=== PATIENT | female | born 1990 | race Caucasian/White ===

== ENCOUNTER 2016-05-08 11:37 | Outpatient (CLI) | payer OTHER | END 2016-05-08 11:38 | disposition home or self-care (01) | DX: Z36 Encounter for antenatal screening of mother (principal) ==

== ENCOUNTER 2016-05-25 14:55 | Outpatient (CLI) | payer OTHER | END 2016-05-25 14:56 | disposition home or self-care (01) | DX: Z36 Encounter for antenatal screening of mother (principal) ==

== ENCOUNTER 2016-06-23 08:00 | Outpatient (CLI) | payer OTHER | END 2016-06-23 08:01 | disposition home or self-care (01) | DX: Z36 Encounter for antenatal screening of mother (principal) ==

== ENCOUNTER 2016-06-23 14:38 | Outpatient (CLI) | payer OTHER | END 2016-06-23 14:39 | disposition home or self-care (01) | DX: E03.9 Hypothyroidism, unspecified (principal) ==

== ENCOUNTER 2016-06-29 13:28 | Outpatient (CLI) | payer OTHER | END 2016-06-29 13:29 | disposition home or self-care (01) | DX: O26.843 Uterine size-date discrepancy, third trimester (principal) ==

== ENCOUNTER 2016-07-22 09:33 | Inpatient (IN) | payer OTHER ==
[2016-07-22] MEDS ORDERED: SODIUM CHLORIDE FLUSH 0.9% 10 ML SYRINGE IVP PRN (14:38)
[2016-07-22] MEDS ORDERED: fentaNYL 100 MCG/2 ML VIAL IVP PRN (14:38)
--- NOTE | 2016-07-22 14:49 | HISTORY & PHYSICAL EXAMINATION ---
Admit History - Instructions [place]/Slash: -Left hand click circles element as positive or present. -Right hand click slashes element as negative or not present. - Visit Reason Visit Reason: Contractions (25 yo SAb3 LMP 10/02/2015, EDC 07/16/2016 confirmed with US at 7.4 weeks. Pt devlloped contractions which were strong at 0600. Presented t L&D at 0900 with cx at 3/80. Alowed to walk rechecked and was found to be 4/80% at 1430.) - : 5 Parity: 1 : 3 Care: positive: [facility] (Transfered at 25.6 weeks from [facility]. Pregnency complicated with Itching with negative bile solts, abnormal 50 gm with normal 3 hour GTT. GBS positive.) Risk/History: positive: Labor augmentation (Pt is showing cervical change) Complications This : positive: None Smoking Status: Former smoker - Mother's Labs Mother's Blood Type: positive: O Mother's RH: positive: Positive GBS: positive: Group B Strep Positive Rubella Status: positive: Immune Meds/Allgy - Home Medications Home Medications: Ambulatory Orders Medication Instructions Recorded Confirmed Levothyroxine [Synthroid] 100 mcg ORAL DAILY 02/23/15 12/11/15 Gabapentin 300 mg PO BID 12/11/15 12/11/15 Pnv95/Iron Fum/Folic Acid 1 tab PO DAILY 12/11/15 12/11/15 [ Caplet] Pyridoxine HCl [Vitamin B-6] 25 mg PO TID 12/11/15 12/11/15 Unisom 1 tab PO DAILY 12/11/15 12/11/15 - Allergies Allergies/Adverse Reactions: Allergies Allergy/AdvReac Type Severity Reaction Status Date / Time nifedipine Allergy Intermediate Headache Verified 12/11/15 22:16 [From Nifedical XL] codeine [Codeine] Allergy Unknown Hives Verified 12/11/15 22:16 fluoxetine HCl * Allergy Unknown UNKNOWN Verified 12/11/15 22:16 [From Prozac] plastic hospital tape AdvReac Rash Uncoded 12/11/15 22:16 Physical - Abdominal Exam Vital Signs: Temp Pulse Resp BP Pulse Ox 36.4 C L 75 22 116/80 99 07/22/16 09:48 07/22/16 09:48 07/22/16 09:48 07/22/16 09:48 07/22/16 09:48 Contraction Intensity: positive: Moderate to strong - Monitoring Strip Review: positive: Category I - Presentation Presentation: positive: Vertex - Vaginal Exam Membranes: positive: Membranes intact Dilation (in cm): 4 Effacement (%): 80% Station: positive: -2 Cervical Position: positive: Midposition - Speculum Exam Speculum Exam Performed: positive: No (PER, EOM Heart RR without M Lungs clear) Plan for Labor - Plan For Labor Plan for Labor: 1. 40.6 weeks 2. Early labor 3. Hypothyroid 4. chronic pain. 5. GBS positive
[2016-07-22] MEDS: LACTATED RINGERS 1,000 ML IV SCH ×2 (14:50→18:32)
[2016-07-22] MEDS ORDERED: PENICILLIN G POTASSIUM 5,000,000 UNIT in SODIUM CHLORIDE 0.9% MINIBAG 100 ML IV SCH (15:00)
[2016-07-22 15:11] LABS: BASOPHILS % (AUTO) 0.4 %; EOSINOPHILS # (AUTO) 0.1 10^3/uL (0.0-0.7); EOSINOPHILS % (AUTO) 0.6 %; HCT - HEMATOCRIT 31.1 % (37.0-47.0); LYMPHOCYTES # (AUTO) 3.3 10^3/uL (1.5-3.5); LYMPHOCYTES % (AUTO) 25.9 %; MEAN CORPUSCULAR HEMOGLOBIN 24.6 pg (27.0-31.0); MEAN CORPUSCULAR HGB CONC 32.2 g/dL (32.0-36.0); MEAN CORPUSCULAR VOLUME 76.2 fL (81.0-99.0); MEAN PLATELET VOLUME 8.3 fL (7.9-10.8); MONOCYTES # (AUTO) 0.9 10^3/uL (0.0-1.0); MONOCYTES % (AUTO) 7.2 %; NEUTROPHILS # (AUTO) 8.3 10^3/uL (1.5-6.6); NEUTROPHILS % (AUTO) 65.9 %; RED BLOOD COUNT 4.08 10^6/uL (4.20-5.40); RED CELL DISTRIBUTION WIDTH 16.8 % (12.0-15.0); UNCORRECTED WHITE BLOOD COUNT 12.6 x10^3/uL; WHITE BLOOD COUNT 12.6 x10^3/uL (4.8-10.8)
[2016-07-22] MEDS ORDERED: fentaNYL 100 MCG/2 ML VIAL ONE (15:35)
[2016-07-22] MEDS ORDERED: fent/BUPIV 2 MCG/0.125% 250 ML EP ONE (15:35)
[2016-07-22] MEDS: ACETAMINOPHEN 325 MG TABLET PO SCH (17:14)
[2016-07-22] MEDS ORDERED: ePHEDrine 50 MG/ML AMP IVP PRN (17:57)
[2016-07-22] MEDS ORDERED: diphenhydrAMINE INJ 50 MG/ML VIAL IVP PRN (17:57)
[2016-07-22] MEDS ORDERED: NALBUPHINE 20 MG/ML AMP IVP PRN (17:57)
[2016-07-22] MEDS ORDERED: ONDANSETRON 4 MG/2 ML VIAL IVP PRN (17:57)
[2016-07-22] MEDS ORDERED: NALOXONE 0.4 MG/ML VIAL IVP PRN (17:57)
[2016-07-22] MEDS ORDERED: fent/BUPIV 2 MCG/0.125% 250 ML EP PRN (17:57)
[2016-07-22] MEDS ORDERED: LACTATED RINGERS 500 ML IV ONE (17:57)
[2016-07-22] MEDS ORDERED: METOCLOPRAMIDE 10 MG/2 ML VIAL IVP PRN (17:57)
[2016-07-22] MEDS: ONDANSETRON 4 MG/2 ML VIAL IVP PRN ×2 (18:55→22:58)
[2016-07-22] MEDS: PENICILLIN G POTASSIUM 2,500,000 UNIT in SODIUM CHLORIDE 0.9% 100ML 100 ML IV SCH ×2 (18:57→23:17)
--- NOTE | 2016-07-22 20:14 | PROVIDER PROGRESS NOTE ---
Labor Progress Note - Instructions [place]/Slash: -Left hand click circles element as positive or present. -Right hand click slashes element as negative or not present. - Uterine Monitoring Uterine Monitoring Mode: positive: External toco Contraction Intensity: positive: Moderate to strong Uterine Resting Tone: positive: Soft - Monitoring Monitor Mode: positive: External ultrasound Heart Rate Baseline: 125 Heart Rate Variability: positive: Moderate (6-25 bmp) Accelerations: positive: Present, 15x15 Decelerations: positive: None Strip Review: positive: Category I - Vaginal Exam Dilation (in cm): 6 Effacement (%): 90 Station: positive: Ballotable Cervical Position: positive: Midposition - Labor Progress Note Labor Progress Note/Additional Text: Pt has excellent epidural. baby's head has ascended. Not well applied. Progressing. will not rupture now.
[2016-07-22] MEDS ORDERED: OXYTOCIN/LACTATED RINGERS 250 ML IV SCH (22:00)
[2016-07-22] MEDS ORDERED: SODIUM CHLORIDE FLUSH 0.9% 10 ML SYRINGE IVP SCH (22:00)
[2016-07-22] MEDS ORDERED: LIDOCAINE 1% 50 ML MDV ONE (22:29)
[2016-07-22] MEDS ORDERED: MINERAL OIL LIGHT 10 ML MC ONE (22:29)
[2016-07-23] MEDS ORDERED: WITCH HAZEL/GLYCERIN 1 EACH MED..PAD TOP PRN (00:16)
[2016-07-23] MEDS ORDERED: HYDROCORTISONE 1% CREAM 28 GM TUBE PR PRN (00:16)
[2016-07-23] MEDS ORDERED: OXYTOCIN/LACTATED RINGERS 250 ML IV ONE (00:16)
[2016-07-23] MEDS ORDERED: diphenhydrAMINE INJ 50 MG/ML VIAL IVP PRN (00:16)
--- NOTE | 2016-07-23 00:24 | DELIVERY NOTE ---
Delivery Note - Instructions [place]/Slash: -Left hand click circles element as positive or present. -Right hand click slashes element as negative or not present. - Labor Labor: positive: Spontaneous - Delivery Method Delivery Method: positive: Vacuum assist - Presentation Presentation: positive: Vertex, ELIZABETH - right occiput anterior - Nuchal Cord Nuchal Cord: positive: Present, Reduced (times 2) - Anesthetic Anesthetic Type: Anesthetic: positive: Lidocaine - 1% plain Volume: positive: Other (15 ml) - Amniotic Fluid Description Amniotic Fluid Description: positive: Clear - Vacuum Use Indication for Vacuum Use: positive: Shortening of 2nd stage for maternal benefit Type of Vacuum Cup: positive: Cup: Mushroom Type, Cup: Soft Vacuum Extraction: positive: Successful Number of pop-offs: 0 - Episiotomy Type Episiotomy Type: positive: None - Laceration Laceration: positive: 2nd degree (right near the clitorus), Labial - Suture Suture Type: positive: Vicryl Suture Size: positive: 3-0 - Delivery Outcome Delivery Outcome: positive: Livebirth - [place]: positive: Stimulated, Warmed, Warmer used [place] sex: positive: Female (Apgars 6/9. Weight 10lb 7oz) - Cord Cord: positive: 3 vessels - Placenta Placenta: positive: Intact, Spontaneous - Estimated Blood Loss Estimated Blood Loss (in cc): 300 - Delivery Comments (Free Text/Narrative) Delivery Comments (Free Text/Narrative): following admission pt was started on PCN for GBS +. Epidural was placed with difficulty secondary to rotation of the spine. excellent resujlt. pt developed spontaneous labor so pitocin was not started. progressed and SROMed at 2145. progressed to complete at 2315 contractions spaced and pitocin was added to increase frequency of her contractions. baby was felt to be ROP. to shorten the second stage because of bradycardia a vacuum was placed at +3. Pulled thru 3 contractions with good progress with each contraction the head spontaneously rotated to ELIZABETH and was delivered at 2346. P;acenta soon followed at 2351 it was inspected and noted to be complete. a right labia minora laceration was found and repaired with 3-0 vicril after local anaesthesia with 1 % Lidocane. Following the delivery sponge and needle was correct.
[2016-07-23] MEDS: ACETAMINOPHEN 325 MG TABLET PO SCH (00:55)
[2016-07-23] MEDS ORDERED: LACTATED RINGERS 1,000 ML IV SCH (01:00)
[2016-07-23] MEDS: IBUPROFEN 800 MG TABLET PO SCH ×4 (01:45→23:03)
[2016-07-23] MEDS: oxyCODONE 5 MG TABLET PO PRN ×5 (01:46→17:34)
[2016-07-23] MEDS: HYDROCORTISONE/PRAMOXINE 10 GM PR PRN (05:07)
[2016-07-23 05:45] LABS: BASOPHILS # (AUTO) 0.1 10^3/uL (0.0-0.1); BASOPHILS % (AUTO) 0.4 %; EOSINOPHILS % (AUTO) 0.2 %; HCT - HEMATOCRIT 26.9 % (37.0-47.0); HGB - HEMOGLOBIN 8.8 g/dL (12.0-16.0); LYMPHOCYTES # (AUTO) 2.6 10^3/uL (1.5-3.5); MEAN CORPUSCULAR HEMOGLOBIN 25.1 pg (27.0-31.0); MEAN CORPUSCULAR HGB CONC 32.7 g/dL (32.0-36.0); MEAN CORPUSCULAR VOLUME 76.6 fL (81.0-99.0); MONOCYTES # (AUTO) 0.9 10^3/uL (0.0-1.0); MONOCYTES % (AUTO) 6.5 %; NEUTROPHILS # (AUTO) 9.5 10^3/uL (1.5-6.6); NEUTROPHILS % (AUTO) 72.9 %; RED BLOOD COUNT 3.51 10^6/uL (4.20-5.40); RED CELL DISTRIBUTION WIDTH 17.1 % (12.0-15.0); UNCORRECTED WHITE BLOOD COUNT 13.1 x10^3/uL; WHITE BLOOD COUNT 13.1 x10^3/uL (4.8-10.8)
--- NOTE | 2016-07-23 08:44 | DIABETES LETTER ---
July 22, 2016 [id number] RE: Tanmay Zapien E5. Dear Sirs: I am Dr. Ricky Keating. I delivered Tanmay's , Angi Zapien, on 07/22/2016. This occurred at 2346. She will be going home probably within the next 2 days. She has no other support at home such a s family or other family members and she has now a new to take care of, as well as her 3-year- old child. At this point, I think it would be very important for her to be present to help ca re for her during the transition period. I recommend that she have at least 2 weeks of help from her at this time. If you have any questions, please feel free to contact me. Sincerely, JOB #: [id number] EXT JOB #:[id number]
[2016-07-23] MEDS: ACETAMINOPHEN 500 MG TABLET PO SCH ×3 (08:53→18:31)
[2016-07-23] MEDS: SIMETHICONE CHEW 80 MG TABLET PO SCH ×3 (08:53→23:03)
--- NOTE | 2016-07-23 10:22 | PROVIDER PROGRESS NOTE ---
Subjective - Prog Note Date Prog Note Date: 07/23/16 Prog Note Time: 10:20 - Subjective Pt reports feeling: Improved (Pain /10. using Ice for episotomy pain.) Objective - Vital Signs/Intake & Output Reviewed Vital Signs: Yes Vital Signs: Vital Signs x48h Temp Pulse Resp BP Pulse Ox 07/23/16 08:42 36.4 C L 81 16 119/66 98 07/23/16 04:12 36.3 C L 87 22 141/82 H 98 07/23/16 02:24 36.7 C Intake & Output: Intake & Output 07/20/16 07/21/16 07/22/16 07/23/16 23:59 23:59 23:59 23:59 Intake Total 100 2430 Output Total 875 930 Balance -775 1500 - Objective General Appearance: positive: No acute distress, Alert Respiratory: positive: Chest non-tender, No respiratory distress, Breath sounds nml Cardiovascular: positive: Regular rate & rhythm, No murmur, No gallop Abdomen: positive: Non-tender, Mass (U-1) Extremities: positive: Non-tender. negative: Calf tenderness, Debbie's sign/ cords - Lab Results Fish Bones: 07/23/16 05:25 Other Labs: Lab Results x24hrs 07/23/16 07/22/16 Range/Units 05:25 14:40 WBC 13.1 H 12.6 H (4.8-10.8) x10^3/uL RBC 3.51 L 4.08 L (4.20-5.40) 10^6/uL Hgb 8.8 L 10.0 L (12.0-16.0) g/dL Hct 26.9 L 31.1 L (37.0-47.0) % MCV 76.6 L 76.2 L (81.0-99.0) fL MCH 25.1 L 24.6 L (27.0-31.0) pg MCHC 32.7 32.2 (32.0-36.0) g/dL RDW 17.1 H 16.8 H (12.0-15.0) % Plt Count 192 232 (130-450) 10^3/uL MPV 8.0 8.3 (7.9-10.8) fL Neut # 9.5 H 8.3 H (1.5-6.6) 10^3/uL Lymph # 2.6 3.3 (1.5-3.5) 10^3/uL Heard # 0.9 0.9 (0.0-1.0) 10^3/uL Eos # 0.0 0.1 (0.0-0.7) 10^3/uL Baso # 0.1 0.0 (0.0-0.1) 10^3/uL Absolute Nucleated RBC 0.00 0.00 x10^3/uL Nucleated RBCs 0.0 0.0 /100WBC Assessment/Plan - Problem List (1) Anemia Impression: Post . will start Iron
[2016-07-23] MEDS: DOCUSATE SODIUM 100 MG CAPSULE PO SCH (17:33)
[2016-07-23] MEDS: FERROUS SULFATE 325 MG TABLET PO SCH (17:34)
[2016-07-24] MEDS: ACETAMINOPHEN 500 MG TABLET PO SCH ×2 (05:16→13:49)
--- NOTE | 2016-07-24 08:02 | PROVIDER PROGRESS NOTE ---
Subjective - Prog Note Date Prog Note Date: 07/24/16 Prog Note Time: 08:00 - Subjective Pt reports feeling: Improved (pt doing well. pain scale 3/10. baby sathish need to stay for bili.) Objective - Vital Signs/Intake & Output Reviewed Vital Signs: Yes Vital Signs: Vital Signs x48h Temp Pulse Resp BP Pulse Ox 07/24/16 02:00 36.3 C L 72 16 112/73 98 Intake & Output: Intake & Output 07/21/16 07/22/16 07/23/16 07/24/16 23:59 23:59 23:59 23:59 Intake Total 100 2430 Output Total 875 930 Balance -775 1500 - Objective General Appearance: positive: No acute distress, Alert Respiratory: positive: Chest non-tender, No respiratory distress Cardiovascular: positive: Regular rate & rhythm, No murmur Abdomen: positive: Nml bowel sounds, Mass (u-2 minimal tenderness). negative: Tenderness Rectal: positive: Other (episotomy doing well without erythema.) Extremities: negative: Calf tenderness, Debbie's sign/cords - Lab Results Fish Bones: 07/23/16 05:25 Assessment/Plan - Problem List (1) Anemia Impression: discussed contraception, mastitis, infection, bleeding Discharge meds: Motrin 800 percocet colace iron RTC 6 weeks
--- NOTE | 2016-07-24 08:10 | Discharge Plan ---
Discharge Plan Disposition: 01 Home, Self Care Condition: Good Diet: Regular Activity Restrictions: pelvic rest Shower Restrictions: No Driving Restrictions: No Weight Bearing: Full Weight No Smoking: If you smoke, Please STOP! Call for help. Follow-up with: Ricky Keating MD [Provider Admit Priv/Credential] -
[2016-07-24] MEDS: DOCUSATE SODIUM 100 MG CAPSULE PO SCH (08:20)
[2016-07-24] MEDS: oxyCODONE 5 MG TABLET PO PRN ×2 (08:20→11:49)
[2016-07-24] MEDS: SIMETHICONE CHEW 80 MG TABLET PO SCH (08:20)
[2016-07-24] MEDS: IBUPROFEN 800 MG TABLET PO SCH ×2 (08:20→13:49)
[2016-07-24] MEDS: FERROUS SULFATE 325 MG TABLET PO SCH (08:20)
[2016-07-24 08:27] VITALS: BP 129/75
--- NOTE | 2016-07-24 09:21 | DISCHARGE SUMMARY ---
DATE OF ADMISSION: 07/22/2016 DATE OF DISCHARGE: 07/24/2016 ADMITTING DIAGNOSES 1. Labor. 2. Term cyesis. DISCHARGE DIAGNOSES 1. Labor. 2. Term cyesis. PROCEDURES 1. Epidural. 2. Vacuum-assisted vaginal delivery. PRESENTING HISTORY: The patient is a 25-year-old 5, para 1 female whose EDC was 07/16 confirmed with ultrasound at 7 weeks 4 days. She had difficulty with contractions, starting roughly at 6:00. She presented at 9. She was allowed to walk and found a change in her cervix. She was a transfer from [facility] at 25.6 weeks. She had difficulty with itching during her , but had normal bile salts. She had a normal 3-hour GTT, but was GBS positive. LABORATORY: Preop, her white count was 12.6, hemoglobin 10.0, platelets were 232 postop. Hemoglobin fell to 8.8, white count, 13.1, and platelets were at 192. HOSPITAL COURSE: The patient was admitted, at which time she was allowed to labor. She requested an epidural, but because of the curvature and scoliosis of her spine, it was quite difficult placing an epidural in her. After several attempts, one was accomplished and she had excellent relief. She progressed to complete and because of variable decelerations, decided to shorten the second stage of labor. This was accomplished with a vacuum. Delivery was easy and the was delivered with excellent Apgars. The patient has tolerated delivery well and is recovering well at this time. She is being discharged home on medications of Motrin, Percocet, iron, as well as Colace. She has been discussed with contraception, anemia, as well as bleeding, infection, as well as mastitis. She is instructed to follow up in clinic in 6 weeks. JOB #: [id number] EXT JOB #:[id number] BETTE
[2016-07-24] MEDS: HYDROCORTISONE/PRAMOXINE 10 GM PR PRN (11:49)
--- NOTE | 2016-07-24 15:43 | Labor Flowsheet ---
Labor Flowsheet Datetime Report Generated by CPN: 07/24/2016 15:42 Datetime: 07/24/2016 08:24 VITAL SIGNS NBP Sys/Inna/Mean (mmHg): 129 : 75 : 84 Pulse: 85 SpO2 (%): 99 Temperature (F): 98.1 Temperature (C): 36.7 Temperature (C): 36.7 COMMUNICATION LaborFlag: Labor Datetime: 07/22/2016 23:40 UTERINE ACTIVITY Monitor Mode: External Frequency (min): 2-3 Quality: Strong Duration (sec): 50 Pattern: Normal: <= 5 Contractions in 10 Minutes Resting Tone (Palpate): Relaxed ASSESSMENT A Monitor Mode: External US FHR Baseline Rate : 125 Variability: Moderate 6-25 bpm Accelerations: None Decelerations: Variable Actions for Decelerations: Oxygen Applied Category: Category II Datetime: 07/22/2016 23:38 Patient Care Comments: vac placed Datetime: 07/22/2016 22:38 FHR Baseline Changes: No Baseline Change Datetime: 07/22/2016 22:10 ANESTHESIA Anesthesia Plans: Epidural Anesthesia Comments: epiduRAL REDOSE Datetime: 07/22/2016 22:04 Respirations: 20 Temperature Route: Oral Datetime: 07/22/2016 21:05 Stage of : Labor Datetime: 07/22/2016 21:01 VAGINAL EXAM Dilatation (cm): 6.0 Effacement (%): 90 Station: -3 Exam by: tere dent [facility] Membrane Status: Bulging Presentation 'A': Cephalic Lie 'A': Longitudinal Datetime: 07/22/2016 20:45 Anesthesia Level Check: T9 Datetime: 07/22/2016 19:50 PAIN Pain Scale: 0 Pain Presence: None/Denies Datetime: 07/22/2016 19:48 Monitor Interventions for UA: Mccormick Adjusted Monitor Interventions for FHR: Ultrasound Adjusted Datetime: 07/22/2016 18:59 Antibiotics: Penicillin IV (Units) @ 2.5 Antiemetics/Antacids: Zofran (mg) @ 4 Datetime: 07/22/2016 18:51 PATIENT CARE Patient Position/Activity: Right Lateral Datetime: 07/22/2016 17:57 Contraction Comments: ctx Datetime: 07/22/2016 17:35 Epidural Procedure: Loading Dose Datetime: 07/22/2016 17:13 MEDICATIONS Analgesics/Sedatives: Fentanyl (mcg) @ 50 Datetime: 07/22/2016 16:40 Epidural Procedure Other: Cath Removed; Cath Intact Datetime: 07/22/2016 16:15 PROCEDURE TIME OUT Procedure Verify: Correct Patient Identity; Correct Side and Site are Marked; Accurate Procedure Co nsent Form; Agreement on Procedure to be Done; Correct Patient Position; Relevant Images and Results are Properly Labeled and Displayed; Addressed Need to Administer Antibiotics or Fluids for Irrigation ; Safety Precautions Based on Patient History or Medication Use Epidural Positioning: Sitting Datetime: 07/22/2016 15:57 I/O Interventions: Up to BR
== END 2016-07-24 14:00 | disposition home or self-care (01) | DRG 775 ==
LOC: WFO 09:33 → OB 09:34 → WFO 14:56
PROVIDERS: ADMIT Obstetrics & Gynecology; ATTEND Obstetrics & Gynecology
PROC: 10D07Z6 Extraction of Products of Conception, Vacuum, Via Natural or Artificial Opening (ICD-10-PCS; principal; 2016-07-22)
PROC: 0KQM0ZZ Repair Perineum Muscle, Open Approach (ICD-10-PCS; 2016-07-22)
DX: O48.0 Post-term pregnancy (principal); O99.354 Diseases of the nervous system complicating childbirth; O99.824 Streptococcus B carrier state complicating childbirth; O76 Abnormality in fetal heart rate and rhythm complicating labor and delivery; O70.1 Second degree perineal laceration during delivery; O69.81X0 Labor and delivery complicated by cord around neck, without compression, not applicable or unspecified; O90.81 Anemia of the puerperium; D64.9 Anemia, unspecified; O99.89 Other specified diseases and conditions complicating pregnancy, childbirth and the puerperium; M41.9 Scoliosis, unspecified; O99.284 Endocrine, nutritional and metabolic diseases complicating childbirth; E03.9 Hypothyroidism, unspecified; G89.29 Other chronic pain; Z87.891 Personal history of nicotine dependence; Z37.0 Single live birth; Z3A.40 40 weeks gestation of pregnancy
CPT/HCPCS: 36415; 85025; 99213

== ENCOUNTER 2016-08-04 08:00 | Outpatient (CLI) | payer OTHER ==
[2016-08-04 16:35] LABS: BILIRUBIN,URINE NEGATIVE (NEGATIVE); PH,URINE 5.5 PH (5.0-7.5)
[2016-08-04 16:43] LABS: UR CULTURE IF IND NOT INDICATED
== END 2016-08-04 08:01 | disposition home or self-care (01) ==
LOC: LAB.R 08:00
PROVIDERS: ATTEND Obstetrics & Gynecology
DX: R30.0 Dysuria (principal)
CPT/HCPCS: 81001; 87086